=== PATIENT | male | born 1945 | race Caucasian/White ===

== ENCOUNTER → 2017-12-18 | Outpatient (CLI) | payer MEDICARE ==
[~2017-12-18] MED LIST: AMLO10TA82; DOXA4TAB2; DOXA4TAB2 PO; HCT25T; HCTZ12.5T PO; ISM30TCR; ISOS30TA74; LISI2.5T; MTP50T; ROSU10TA12; ROSU10TA12 PO; SULF1TAB38 PO
--- NOTE | 2017-12-18 15:11 | Diagnostic Imaging Report ---
INDICATION: Left hip pain FINDINGS: Two views of the left hip show narrowing of the superior joint space. There is no fracture or dislocation. IMPRESSION: Degenerative changes in the left hip with joint space narrowing superiorly. No acute abnormality is seen. Dictated by: Dictated on workstation # [id number]
== END ==
LOC: RAD 13:55
DX: M16.12 Unilateral primary osteoarthritis, left hip (principal)
CPT/HCPCS: 73502

== ENCOUNTER → 2018-01-29 | Outpatient (CLI) | payer MEDICARE ==
[~2018-01-29] MED LIST changes: +IOHEXOL 350 MG/ML 100 ML (OMNIPAQUE 350) VIAL IV ONE; +NS 250 ML (IVPB) BAG IV ONE
[2018-01-29 14:01] LABS: BUN/CREATININE RATIO 20; CREATININE SERUM 0.85 MG/DL (0.60-1.30); GFR ESTIMATED > 60
--- NOTE | 2018-01-29 15:45 | Diagnostic Imaging Report ---
PROCEDURE: CT pelvis with contrast. TECHNIQUE: Oral and intravenous contrast were administered with pelvic CT performed. INDICATION: Pelvic and perineal pain. COMPARISON: No prior studies are available for comparison. FINDINGS: Distal aorta is heavily calcified but nonaneurysmal. Iliacs are heavily calcified. The small and large bowel loops in the pelvis are normal caliber. No free fluid is identified. Partially filled urinary bladder is unremarkable. Prostate gland is enlarged measuring 4.8 cm AP x 6.0 cm transverse. No definite inguinal or iliac lymphadenopathy is seen. No perirectal or perianal abscess is seen. Ischiorectal fossa is unremarkable. There are degenerative changes in the lower lumbar spine. The bony structures appear nonacute. IMPRESSION: 1. Prostatomegaly. 2. Otherwise unremarkable CT of the pelvis. Dictated by: Dictated on workstation # [id number]
== END ==
LOC: RAD 13:14
PROVIDERS: ATTEND Surgery
DX: N40.0 Benign prostatic hyperplasia without lower urinary tract symptoms (principal)
CPT/HCPCS: 36415; 72193; 82565; 84520

== ENCOUNTER → 2019-07-06 | Outpatient (CLI) | payer MEDICARE ==
[~2019-07-06] MED LIST changes: -IOHEXOL 350 MG/ML 100 ML (OMNIPAQUE 350) VIAL IV ONE; -NS 250 ML (IVPB) BAG IV ONE
--- NOTE | 2019-07-06 10:13 | Diagnostic Imaging Report ---
INDICATION: Fall with left hip pain. Time of exam: 10:05 AM Two views of the left hip demonstrate osteoarthritic changes. There is complete loss of the superior joint space. The femoral head and neck are intact. No fractures are seen. IMPRESSION: Degenerative changes left hip. No acute bony abnormality is detected. Dictated by: Dictated on workstation # [id number]
--- NOTE | 2019-07-06 10:14 | Diagnostic Imaging Report ---
INDICATION: Fall with left medial knee pain. TIME OF EXAM: 10:08 a.m. FINDINGS: Three views of left knee were obtained. Alignment is normal. Joint spaces are well maintained. The articular surfaces are smooth. No fracture, dislocation or effusion is seen. There are surgical clips along the medial and posterior soft tissues. IMPRESSION: No acute bony abnormality is detected. Dictated by: Dictated on workstation # [id number]
== END ==
LOC: RAD 09:38
DX: S83.412A Sprain of medial collateral ligament of left knee, initial encounter (principal); M16.12 Unilateral primary osteoarthritis, left hip; W19.XXXA Unspecified fall, initial encounter
CPT/HCPCS: 73502; 73562

== ENCOUNTER 2021-06-18 12:20 | Day surgery (SDC) | payer MEDICARE ==
[2021-06-18] VITALS (9 sets, daily range): BP systolic 121–149; BP diastolic 69–95
[~2021-06-18] VITALS: Ht 172.7 cm; Wt 98.3 kg
[2021-06-18] MEDS ORDERED: NS IV 1000 ML 1,000 ML IV SCH ×2 (12:30→15:00)
[2021-06-18] MEDS ORDERED: LIDOCAINE 1% INJ 20 ML 20 ML VIAL ONE (12:34)
[2021-06-18] MEDS ORDERED: NS IV 1000 ML 1,000 ML ONE (12:34)
[2021-06-18] MEDS ORDERED: HEParin (CATH LAB) 2,000 ML IV ONE (12:35)
[2021-06-18 12:52] LABS: HEMATOCRIT 44 % (40-54); HEMOGLOBIN 14.2 g/dL (13.3-17.7); MEAN CORPUSCULAR HEMOGLOBIN 29 pg (25-34); MEAN CORPUSCULAR HGB CONC 33 g/dL (32-36); MEAN CORPUSCULAR VOLUME 89 fL (80-99); MEAN PLATELET VOLUME 9.6 fL (9.0-12.2); PLATELET COUNT 180 10^3/uL (130-400); WHITE BLOOD COUNT 5.3 10^3/uL (4.3-11.0)
[2021-06-18 13:12] LABS: ALBUMIN 4.4 GM/DL (3.2-4.5); BILIRUBIN,TOTAL 0.6 MG/DL (0.1-1.0); CALCIUM 9.8 MG/DL (8.5-10.1); CREATININE SERUM 0.87 MG/DL (0.60-1.30); POTASSIUM 4.4 MMOL/L (3.6-5.0); TOTAL PROTEIN 7.7 GM/DL (6.4-8.2)
[2021-06-18] MEDS ORDERED: LISI40TA9 PO (13:21)
[2021-06-18] MEDS ORDERED: METO100T12 PO (13:21)
[2021-06-18] MEDS ORDERED: AMLO-251 PO (13:21)
[2021-06-18] MEDS ORDERED: ASPI-1238 PO (13:21)
[2021-06-18] MEDS ORDERED: METF-399 PO (13:21)
[2021-06-18] MEDS ORDERED: MIDAZOLAM 5 MG/5 ML (VERSED) VIAL ONE (13:24)
[2021-06-18] MEDS ORDERED: fentaNYL INJ 100 MCG/2 ML AMP ONE (13:24)
[2021-06-18 13:29] LABS: PROTHROMBIN TIME PATIENT 13.6 SEC (12.2-14.7)
--- NOTE | 2021-06-18 14:49 | Cardiac Procedure Note-CS/ASA ---
Pre-Procedure Note Pre-Op Procedure Note H&P Reviewed The H&P was reviewed, patient examined and no changes noted. Date H&P Reviewed: Jun 18, 2021 Time H&P Reviewed: 13:45 Conscious Sedation Pre-Proced Time 13:45 ASA Score 3 For ASA 3 and 4: Consider anesthesia and medical clearance. Also, for patients with a history of failed moderate sedation consider anesthesia. Airway Lungs Heart ASA score ASA 1: a normal healthy patient ASA 2: a patient with a mild systemic disease (mid diabetes, controlled hypertension, obesity ASA 3: a patient with a severe systemic disease that limits activity (angina, COPD, prior Myocardial infarction) ASA 4: a patient with an incapacitating disease that is a constant threat to life (CHF, renal failure) ASA 5: a moribund patient not expected to survive 24 hrs. (ruptured aneurysm) ASA 6: a declared brain- patient whose organs are being harvested. For emergent operations, add the letter E after the classification Mallampati Classification Grade 3 Sedation Plan Analgesia, Amnesia, Plan communicated to team members, Discussed options with patient/fam, Discussed risks with patient/fam The patient is an appropriate candidate to undergo the planned procedure, sedation, and anesthesia. The patient immediately re-assessed prior to indication. BERNICE GROVER MD FACP FAC CCDS Jun 18, 2021 14:49
[2021-06-18] MEDS ORDERED: PATIENT MAY USE OWN MEDS, ALL PO SCH (15:00)
[2021-06-18] MEDS ORDERED: FUROSEMIDE 40 MG/4 ML INJ (LASIX) IVP ONE (15:00)
[2021-06-18] MEDS ORDERED: FURO40TA4 PO (15:06)
[2021-06-18] MEDS ORDERED: ATOR20TA66 PO (15:06)
[2021-06-18] MEDS ORDERED: SPIR25TA5 PO (15:06)
--- NOTE | 2021-06-18 15:06 | Discharge Inst-Cardiology ---
Discharge Inst-Cardiac Discharge Medications New Medications: Atorvastatin Calcium (Atorvastatin Calcium) 20 Mg Tablet 20 MG PO DAILY, #30 TAB 5 Refills Furosemide (Furosemide) 40 Mg Tablet 40 MG PO DAILY for 30 Days, #30 TAB 5 Refills Spironolactone (Spironolactone) 25 Mg Tablet 25 MG PO DAILY, #30 TAB 5 Refills Continued Medications: Amlodipine Besylate (Amlodipine Besylate) 10 Mg Tablet 10 MG PO DAILY, TAB Aspirin (Aspirin EC) 81 Mg Tablet.dr 81 MG PO DAILY, TAB Doxazosin Mesylate (Doxazosin Mesylate) 4 Mg Tablet 8 MG PO BID Lisinopril (Lisinopril) 40 Mg Tablet 40 MG PO DAILY, TAB Metoprolol Tartrate (Metoprolol Tartrate) 100 Mg Tablet 100 MG PO BID, TAB Discontinued Medications: Metformin HCl (Metformin HCl) 1,000 Mg Tablet 1000 MG PO BID, TAB Patient Instructions Patient Instructions: Resume METFORMIN at previous home dose beginning on the evening of 06/20/21 BERNICE GROVER MD [facility] Jun 18, 2021 15:06
--- NOTE | 2021-06-18 15:07 | Discharge Inst-Post CATH ---
Discharge Inst-CATH/EP Post Cardiac Cath/EP D/C Inst Follow Up/Plan F/u at Dr Russell's in one week ACTIVITY * Go Home directly and rest. * Limit activity of the leg (or wrist if it was used) for 7 days including aerobics, swimming, jogging, bicycling, etc. * Restrict stair-climbing for 7 days if possible, if not, climb up with your non-cath leg, then bring together on the same step. * Avoid lifting, pushing, pulling or excessive movement of the affected e xtremity for 7 days. * Customary sexual activity may be resumed after 2 days-use caution not to use a position that strains or causes pain to the affected extremity. * No driving for 24 hours. * NO SMOKING. * Avoid straining for bowel movements for 7 days. * Gentle walking on level ground is allowed. * Returning to work will depend on the type of procedure and the results. Your doctor will discuss this with you. CALL YOUR DOCTOR FOR ANY OF THE FOLLOWING: *If bleeding from the puncture site occurs- Apply gentle pressure to site with clean cloth and call your doctor or EMS. * If a knot or lump forms under the skin, increases in size, or causes pain. * If bruising appears to be worsening or moving further down your leg instead of disappearing. * Temperature above 101 F. CARE OF YOUR GROIN INCISION; * Bruising or purple discoloration of the skin near the puncture site is common. * You may shower only, no bathtub bathing for 5 days. Be careful to avoid slipping as your leg may feel stiff. * If a closure device was used on your femoral artery, please see the attached guide regarding care of the device and your leg. * Leave dressing on FOR 24 hours. CARE OF YOUR WRIST INCISION; * Bruising or purple discoloration of the skin near the puncture site is common. * You may shower. * DO NOT submerge wrist. * Leave dressing on FOR 24 hours. BERNICE RUSSELL MD FACP FAC CCDS Jun 18, 2021 15:07
--- NOTE | 2021-06-18 17:33 | CARDIAC CATHETERIZATION ---
DATE OF SERVICE: 06/18/2021 CARDIAC CATHETERIZATION REPORT The patient is a 76-year-old man with a history of coronary artery disease and coronary artery bypass surgery in 2009. He has been having increasing shortness of breath and has also had upper left and shoulder discomfort intermittently. He has had a considerable amount of leg swelling. Symptoms have been progressive for the last 6 months. Cardiac catheterization was carried out today after having obtained an informed consent. DESCRIPTION OF PROCEDURE: He was brought to the cardiac catheterization laboratory in a fasting state. Right groin was prepared and draped in the usual sterile fashion. Lidocaine 1% was used for local anesthesia. Modified Seldinger technique was used to advance a 5-Estonian sheath into the right femoral artery. A 5-Estonian JL4 catheter for left coronary angiography, 5-Estonian JR4 catheter for right coronary angiography, 5-Estonian JR4 catheter was also used for angiography of the aortocoronary grafts. A 5-Estonian YUNG catheter was used for angiography of the left internal mammary artery graft to the left anterior descending. A 5-Estonian pigtail catheter was used for left heart catheterization and left ventricular angiography. Angiography of the right femoral artery was carried out through the sheath and Mynx was used to achieve hemostasis following sheath removal. He tolerated the procedure well. HEMODYNAMICS: Left ventricular end-diastolic pressure following coronary angiography was 22 mmHg. There was no significant pressure gradient on pullback across the aortic valve. Ascending aortic pressure was 126/56 with a mean of 76 mmHg. LEFT VENTRICULAR ANGIOGRAPHY: Left ventricular angiography was carried out in the right anterior oblique projection. There is global hypokinesis and this is significantly more marked in the basal inferior wall. Left ventricular ejection fraction is 35 to 40%. There appears to be mild to moderate mitral regurgitation. CORONARY ANGIOGRAPHY: Left main coronary artery does not exhibit significant disease. Left anterior descending artery has moderate proximal disease and appears to be occluded in its mid portion. Large ramus intermedius artery has moderate diffuse disease. The left circumflex artery is occluded distally. This is a long segment of occlusion. The very distal left circumflex artery is reconstituted by bridging collaterals. The ramus intermedius also supplies collaterals to the very distal left circumflex. The right coronary artery is occluded in its mid portion. This appears to be a small caliber branch. AORTOCORONARY GRAFT: The aortocoronary graft to a diagonal is occluded. The aortocoronary graft to a ramus intermedius is patent, but is small and atretic, probably because of the ramus intermedius itself has only mild to moderate disease. A saphenous vein graft to the posterior descending is occluded. The posterior descending appears to be originating from the left circumflex and fills via bridging collaterals. LEFT INTERNAL MAMMARY ARTERY GRAFT ANGIOGRAPHY: Left internal mammary artery graft to mid left anterior descending artery is patent and with a good distal runoff. CONCLUSIONS: 1. Severe [place] coronary artery disease including mid vessel occlusion of the left anterior descending, distal occlusion of the left circumflex, and mid vessel occlusion of the right coronary. 2. Occluded saphenous vein graft to a diagonal. 3. Occluded saphenous vein graft to the posterior descending artery. 4. Patent but collapsed and atretic graft to ramus intermedius, probably because ramus intermedius itself does not exhibit severe obstructive disease. 5. Patent left internal mammary artery graft to the left anterior descending. 6. Impairment of global left ventricular systolic function with an ejection fraction of 35% to 40%. 7. Global hypokinesis of left ventricle, more marked in the basal inferior wall. 8. Cardiomegaly. 9. Elevated left ventricular end-diastolic pressure. DISCUSSION AND RECOMMENDATIONS: This appears to be a picture of ischemic cardiomyopathy. He is already on beta-blockers and BENY inhibitors. We will add diuretics to the regimen. Close outpatient followup is advised. He wanted a consultation with his cardiovascular surgeon, Dr. Zaragoza, which is being arranged. Job ID: [id number] DocumentID: [id number] Dictated Date: 06/18/2021 15:02:51 Med Spa Manager Date: 06/18/2021 17:33:11 Dictated By: BERNICE GROVER MD, MA, FACP, FACC,
== END 2021-06-18 18:10 | disposition home or self-care (01) ==
LOC: CATH 12:20
PROVIDERS: ATTEND Internal Medicine Cardiovascular Disease
DX: T82.868A Thrombosis due to vascular prosthetic devices, implants and grafts, initial encounter (principal); I25.119 Atherosclerotic heart disease of native coronary artery with unspecified angina pectoris; I11.9 Hypertensive heart disease without heart failure; I49.3 Ventricular premature depolarization; I44.7 Left bundle-branch block, unspecified; E11.9 Type 2 diabetes mellitus without complications; E78.2 Mixed hyperlipidemia; Z79.899 Other long term (current) drug therapy; Z79.82 Long term (current) use of aspirin; Z79.84 Long term (current) use of oral hypoglycemic drugs; Z95.1 Presence of aortocoronary bypass graft
CPT/HCPCS: 80053; 80061; 85027; 85610; 85730; 87081; 93459; C1760; C1769; C1894; 36415

== ENCOUNTER → 2021-11-22 | Outpatient (CLI) | payer MEDICARE ==
[~2021-11-22] MED LIST changes: +AMLO-251 PO; +ASPI-1238 PO; +ATOR20TA66 PO; +FURO40TA4 PO; +LISI40TA9 PO; +METF-399 PO; +METO100T12 PO; +SPIR25TA5 PO
== END ==
LOC: CARD 11:00
PROVIDERS: ATTEND Internal Medicine Cardiovascular Disease
DX: I08.0 Rheumatic disorders of both mitral and aortic valves (principal); I25.5 Ischemic cardiomyopathy
CPT/HCPCS: 93306

== ENCOUNTER 2022-02-06 07:53 | Emergency (ER) | payer MEDICARE ==
[~2022-02-06] VITALS: Ht 172 cm; Wt 95.2 kg
--- NOTE | 2022-02-06 08:13 | ED GU-Male ---
General Chief Complaint: - Reproductive Stated Complaint: URINATING BLOOD Nursing Triage Note: PT AMBULATORY TO ER, C/O HEMATURIA ONSET 12-14 HOURS AGO. PT DENIES PAIN. NO PREVIOUS HX OF HEMATURIA, TAKES A DAILY BABY ASA. Source: patient Exam Limitations: no limitations History of Present Illness Date Seen by Provider: Feb 06, 2022 Time Seen by Provider: 08:00 Initial Comments Patient is a 76-year-old male who presents to the emergency department today with a chief complaint of hematuria onset around 8 PM last night. No dysuria, urgency or frequency. He states that he has a history of prostate enlargement. He feels on a fairly regular basis that he has a difficult time emptying his bladder. Last bowel movement was normal, nonblack nonbloody, no diarrhea. No pain with his bowel movement. He denies fevers or chills. No abdominal pain, nausea or vomiting. He has a long history of heart disease/congestive heart failure. History of coronary artery bypass grafting. Followed by provider relations rep at [facility] in [place]. He is not on blood thinners. No history that he is aware of his kidney disease. No kidney stones or cancers. All other review of systems reviewed and negative except as stated Timing/Duration: other (Last night) Activities at Onset: none Prior Genitourinary Problems: none Associated Symptoms: denies symptoms Allergies and Home Medications Allergies Coded Allergies: No Known Drug Allergies (Verified , 09/18/09) Patient Home Medication List Home Medication List Reviewed: Yes Amlodipine Besylate (Amlodipine Besylate) 10 Mg Tablet, 10 MG PO DAILY, (Reported) Entered as Reported by: LYNNETTE BARRERA on 06/18/21 1321 Aspirin (Aspirin EC) 81 Mg Tablet.dr, 81 MG PO DAILY, (Reported) Entered as Reported by: LYNNETTE BARRERA on 06/18/21 1321 Atorvastatin Calcium (Atorvastatin Calcium) 20 Mg Tablet, 20 MG PO DAILY Prescribed by: BERNICE GROVER on 06/18/21 1506 Doxazosin Mesylate (Doxazosin Mesylate) 4 Mg Tablet, 8 MG PO BID, (Reported) Entered as Reported by: ANILA DOVE on 08/13/12 1521 Furosemide (Furosemide) 40 Mg Tablet, 40 MG PO DAILY Prescribed by: BERNICE GROVER on 06/18/21 1506 Lisinopril (Lisinopril) 40 Mg Tablet, 40 MG PO DAILY, (Reported) Entered as Reported by: LYNNETTE BARRERA on 06/18/21 1321 Metoprolol Tartrate (Metoprolol Tartrate) 100 Mg Tablet, 100 MG PO BID, (Reported) Entered as Reported by: LYNNETTE BARRERA on 06/18/21 1321 Spironolactone (Spironolactone) 25 Mg Tablet, 25 MG PO DAILY Prescribed by: BERNICE GROVER on 06/18/21 3586 Review of Systems Review of Systems Constitutional: see HPI EENTM: no symptoms reported Respiratory: no symptoms reported Cardiovascular: chest pain (Chronic off-and-on especially with any exertion over 100 feet) Gastrointestinal: no symptoms reported Genitourinary: hematuria Musculoskeletal: no symptoms reported Skin: no symptoms reported Psychiatric/Neurological: No Symptoms Reported All Other Systemes Reviewed Negative Unless Noted: Yes Past Jeengxv-Kxotwq-Wggrvl Hx Patient Social History Tobacco Use?: No Use of E-Cig and/or Vaping dev: No Substance use?: No Alcohol Use?: Yes Alcohol Frequency: Couple times a week Pt feels they are or have been: No Immunizations Up To Date First/Initial COVID19 Vaccinat: RECEIVED, UNK WHEN Second COVID19 Vaccination Oj: RECEIVED, UNK WHEN COVID19 Vaccine 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 oz. kg; 32.00 BMI Method:Stated General Appearance: WD/WN, no apparent distress HEENT: PERRL/EOMI Neck: normal inspection Cardiovascular: regular rate, rhythm Respiratory: lungs clear, normal breath sounds, no respiratory distress, no accessory muscle use Gastrointestinal: non tender, soft Extremities: normal range of motion, non-tender, normal inspection, no pedal edema, normal capillary refill Neurologic/Psychiatric: no motor/sensory deficits, alert, normal mood/affect, oriented x 3 Skin: normal color, warm/dry; No pallor Progress/Results/Core Measures Suspected Sepsis SIRS Temperature: Pulse: 89 Respiratory Rate: 18 Laboratory Tests 02/06/22 08:26: White Blood Count 7.3 Blood Pressure 192 /92 Mean: 125 Laboratory Tests 02/06/22 08:26: Creatinine 1.36H, Platelet Count 224 Results/Orders Lab Results Laboratory Tests Test 02/06/22 08:26 02/06/22 10:11 Range/Units White Blood Count 7.3 4.3-11.0 10^3/uL Red Blood Count 4.44 4.30-5.52 10^6/uL Hemoglobin 13.6 13.3-17.7 g/dL Hematocrit 40 40-54 % Mean Corpuscular Volume 91 80-99 fL Mean Corpuscular Hemoglobin 31 25-34 pg Mean Corpuscular Hemoglobin Concent 34 32-36 g/dL Red Cell Distribution Width 12.6 10.0-14.5 % Platelet Count 224 130-400 10^3/uL Mean Platelet Volume 9.7 9.0-12.2 fL Immature Granulocyte % (Auto) 0 % Neutrophils (%) (Auto) 59 42-75 % Lymphocytes (%) (Auto) 31 12-44 % Monocytes (%) (Auto) 8 0-12 % Eosinophils (%) (Auto) 2 0-10 % Basophils (%) (Auto) 0 0-10 % Neutrophils # (Auto) 4.3 1.8-7.8 10^3/uL Lymphocytes # (Auto) 2.3 1.0-4.0 10^3/uL Monocytes # (Auto) 0.6 0.0-1.0 10^3/uL Eosinophils # (Auto) 0.1 0.0-0.3 10^3/uL Basophils # (Auto) 0.0 0.0-0.1 10^3/uL Immature Granulocyte # (Auto) 0.0 0.0-0.1 10^3/uL Sodium Level 134 L 135-145 MMOL/L Potassium Level 4.9 3.6-5.0 MMOL/L Chloride Level 101 98-107 MMOL/L Carbon Dioxide Level 21 21-32 MMOL/L Anion Gap 12 5-14 MMOL/L Blood Urea Nitrogen 29 H 7-18 MG/DL Creatinine 1.36 H 0.60-1.30 MG/DL Estimat Glomerular Filtration Rate 54 BUN/Creatinine Ratio 21 Glucose Level 157 H 70-105 MG/DL Calcium Level 9.8 8.5-10.1 MG/DL Urine Color YELLOW Urine Clarity CLEAR Urine pH 5.5 5-9 Urine Specific [place]vel <=1.005 1.016-1.022 Urine Protein TRACE H NEGATIVE Urine Glucose (UA) NEGATIVE NEGATIVE Urine Ketones NEGATIVE NEGATIVE Urine Nitrite NEGATIVE NEGATIVE Urine Bilirubin NEGATIVE NEGATIVE Urine Urobilinogen 0.2 < = 1.0 MG/DL Urine Leukocyte Esterase NEGATIVE NEGATIVE Urine RBC (Auto) 3+ H NEGATIVE Urine RBC TNTC H /HPF Urine WBC RARE /HPF Urine Crystals PRESENT H /LPF Urine Amorphous Sediment MOD HARLEY URATES H /LPF Urine Bacteria NEGATIVE /HPF Urine Casts NONE /LPF Urine Mucus NEGATIVE /LPF Urine Culture Indicated NO My Orders Orders - MARY AKINS MD Ua Culture If Indicated (02/06/22 08:01) Ed Iv/Invasive Line Start (02/06/22 08:10) Cbc With Automated Diff (02/06/22 08:10) Basic Metabolic Panel (02/06/22 08:10) Bladder Scan (02/06/22 08:10) Ns Iv 1000 Ml (Sodium Chloride 0.9%) (02/06/22 09:15) Ct Abdomen/Pelvis Wo (02/06/22 10:55) Vital Signs/I&O 02/06/22 02/06/22 02/06/22 08:00 08:32 10:00 Temp 36.2 Pulse 89 73 72 Resp 18 18 18 B/P (MAP) 192/92 (125) 126/77 131/72 Pulse Ox 97 94 95 O2 Delivery Room Air Room Air Capillary Refill : Blood Pressure Mean: 125 Progress Note : Time: 11:37 Progress Note Patient has been resting comfortably in the emergency department with stable vital signs, blood pressure has come down nicely 122 systolic at this time. His CT shows a filling defect in the bladder which may represent mass versus clot. He is urinated just fine while he has been here in the department. Urine shows no signs of infection. His renal function is normal. He has what appears to be a solitary cyst in the right kidney on CT as well. I have talked to him about follow-up. I plan to give him contact information for as the patient needs cystoscopy. Return precautions provided to include inability to urinate and fever. He verbalizes understanding and is quite comfortable with plan of care. All questions are sought and answered. Diagnostic Imaging Diagonstic Imaging: CT Comments NAME: CONSTANTIN CHAN II [facility] REC#: [id number] PT STATUS: REG ER : 1945 PHYSICIAN: MARY AKINS MD ADMIT DATE: 02/06/22/ER Draft Date of Exam:02/06/22 CT ABDOMEN/PELVIS WO INDICATION: Hematuria and weakness. TECHNIQUE: Multiple contiguous axial images were obtained through the abdomen and pelvis without the use of intravenous contrast. Auto Exposure Controls were utilized during the CT exam to meet ALARA standards for radiation dose reduction. COMPARISON: There is no prior abdominal CT for comparison. Comparison made with CT pelvis of 01/29/2018. FINDINGS: The visualized portions of the lung bases are clear. There were no pleural fluid collections. There is no free intraperitoneal air. The liver and gallbladder appear normal. The spleen, pancreas, and left kidney appear normal. There is a small cyst in the right kidney. There is no retroperitoneal mass or adenopathy. There is no ascites or abnormal fluid collection. There is a small right adrenal nodule measuring about 1.7 cm, this shows low Hounsfield units and is likely a benign adenoma. Urinary bladder is distended. There is a filling defect in the left side of the bladder measuring about 1.2 cm. This may represent mass or blood clot given the patient's history. Prostate gland is mildly enlarged. IMPRESSION: There is a 1.2 cm hypodense filling defect in the left side of the bladder which may represent mass or blood clot given the patient's history. Cystoscopy is recommended to further evaluate. This finding was not present on the prior CT. There is some degree of prostatic enlargement. There is a small cyst in the right kidney. There is no hydronephrosis or radiopaque stone. There is a small probable adrenal adenoma on the right side. Dictated on workstation # [id number] Dict: 02/06/22 1114 Trans: 02/06/22 1126 [id number] Interpreted by: FITZ BRIAN MD Electronically signed by: Departure Impression Primary Impression: Hematuria, gross Disposition: 01 HOME, SELF-CARE Condition: Stable Departure-Patient Inst. Decision time for Depature: 11:38 Referrals: [facility]/JYOTI (PCP) Primary Care Physician WHITNEY JOE (Family) Primary Care Physician FREDY KIMBLE MD Patient Instructions: Blood in Urine (Hematuria), Adult ED Add. Discharge Instructions: Drink lots of fluids to stay well-hydrated. If you have the inability to urinate over several hours please come back to the emergency room for reevaluation. Also if you develop any fevers in association with discomfort with urination or nausea or any other emergent concerning symptoms develop please come back for reevaluation. I have provided you with contact information for 's office, our urologist. Please call his office today to schedule a follow-up appointment regarding the CAT scan of your abdomen which shows a "filling defect" in your bladder which may represent a mass in the bladder. Follow-up with [facility] as needed. Copy Copies To 1: FREDY KIMBLE MD Copies To 2: RUDOLPH PENG KATHRYN M MD Feb 06, 2022 08:13
[2022-02-06 08:29] LABS: BASOPHILS % (AUTO) 0 % (0-10); EOSINOPHILS # (AUTO) 0.1 10^3/uL (0.0-0.3); EOSINOPHILS % (AUTO) 2 % (0-10); HEMATOCRIT 40 % (40-54); HEMOGLOBIN 13.6 g/dL (13.3-17.7); LYMPHOCYTES # (AUTO) 2.3 10^3/uL (1.0-4.0); LYMPHOCYTES % (AUTO) 31 % (12-44); MEAN CORPUSCULAR HEMOGLOBIN 31 pg (25-34); MEAN CORPUSCULAR HGB CONC 34 g/dL (32-36); MEAN CORPUSCULAR VOLUME 91 fL (80-99); MEAN PLATELET VOLUME 9.7 fL (9.0-12.2); MONOCYTES # (AUTO) 0.6 10^3/uL (0.0-1.0); MONOCYTES % (AUTO) 8 % (0-12); NEUTROPHILS # (AUTO) 4.3 10^3/uL (1.8-7.8); NEUTROPHILS % (AUTO) 59 % (42-75); PLATELET COUNT 224 10^3/uL (130-400); WHITE BLOOD COUNT 7.3 10^3/uL (4.3-11.0)
[2022-02-06 08:48] LABS: CALCIUM 9.8 MG/DL (8.5-10.1); CREATININE SERUM 1.36 MG/DL (0.60-1.30); POTASSIUM 4.9 MMOL/L (3.6-5.0)
[2022-02-06] MEDS ORDERED: NS IV 1000 ML 1,000 ML IV SCH (09:15)
[2022-02-06 10:22] LABS: BILIRUBIN,URINE NEGATIVE (NEGATIVE); CLARITY,URINE CLEAR; COLOR,URINE YELLOW; GLUCOSE, URINE (UA) NEGATIVE (NEGATIVE); KETONES,URINE NEGATIVE (NEGATIVE); LEUKOCYTE ESTERASE ,URINE NEGATIVE (NEGATIVE); NITRITE,URINE NEGATIVE (NEGATIVE); PH,URINE 5.5 (5-9); PROTEIN,URINE TRACE (NEGATIVE)
[2022-02-06 10:31] LABS: AMORPHOUS SEDIMENT,UR MOD AMOR URATES /LPF; BACTERIA,URINE NEGATIVE /HPF; RBC,URINE TNTC /HPF; WBC,URINE RARE /HPF
--- NOTE | 2022-02-06 11:27 | Diagnostic Imaging Report ---
INDICATION: Hematuria and weakness. TECHNIQUE: Multiple contiguous axial images were obtained through the abdomen and pelvis without the use of intravenous contrast. Auto Exposure Controls were utilized during the CT exam to meet ALARA standards for radiation dose reduction. COMPARISON: There is no prior abdominal CT for comparison. Comparison made with CT pelvis of 01/29/2018. FINDINGS: The visualized portions of the lung bases are clear. There were no pleural fluid collections. There is no free intraperitoneal air. The liver and gallbladder appear normal. The spleen, pancreas, and left kidney appear normal. There is a small cyst in the right kidney. There is no retroperitoneal mass or adenopathy. There is no ascites or abnormal fluid collection. There is a small right adrenal nodule measuring about 1.7 cm, this shows low Hounsfield units and is likely a benign adenoma. Urinary bladder is distended. There is a filling defect in the left side of the bladder measuring about 1.2 cm. This may represent mass or blood clot given the patient's history. Prostate gland is mildly enlarged. IMPRESSION: There is a 1.2 cm hypodense filling defect in the left side of the bladder which may represent mass or blood clot given the patient's history. Cystoscopy is recommended to further evaluate. This finding was not present on the prior CT. There is some degree of prostatic enlargement. There is a small cyst in the right kidney. There is no hydronephrosis or radiopaque stone. There is a small probable adrenal adenoma on the right side. Dictated by: Dictated on workstation # [id number]
[2022-02-06 11:45] VITALS: BP 122/62
== END 2022-02-06 11:45 | disposition home or self-care (01) ==
LOC: EDUNIT# 07:53 → ER 07:54
DX: R31.0 Gross hematuria (principal); Z87.438 Personal history of other diseases of male genital organs
CPT/HCPCS: 36415; 74176; 80048; 81000; 85025

== ENCOUNTER 2022-02-24 05:29 | Outpatient (CLI) | payer MEDICARE ==
[~2022-02-24] VITALS: Ht 175.3 cm; Wt 94.8 kg
== END 2022-02-24 09:41 ==
LOC: PREOP 05:29
PROVIDERS: ATTEND Urology
DX: Z01.818 Encounter for other preprocedural examination (principal); D49.4 Neoplasm of unspecified behavior of bladder

== ENCOUNTER 2022-02-26 05:59 | Day surgery (SDC) | payer MEDICARE ==
[~2022-02-26] VITALS: Ht 175.3 cm; Wt 94.8 kg
[2022-02-26] VITALS (12 sets, daily range): BP systolic 83–149; BP diastolic 46–83
[2022-02-26] MEDS ORDERED: cefTRIAXone 1 GM PRE-MIX 50 ML IV ONE (06:15)
[2022-02-26] MEDS: LACTATED RINGERS 1,000 ML IV PRN ×2 (06:35→08:47)
[2022-02-26] MEDS ORDERED: LIDOCAINE PF 0.5% 50 ML (XYLOCAINE) VIAL ONE (07:14)
[2022-02-26] MEDS ORDERED: proPOfol 200 MG/20 ML (DIPRIVAN) VIAL IV ONE (07:14)
[2022-02-26] MEDS ORDERED: fentaNYL INJ 100 MCG/2 ML AMP ONE (07:15)
[2022-02-26] MEDS ORDERED: MIDAZOLAM 2 MG/2 ML (VERSED) VIAL ONE (07:15)
--- NOTE | 2022-02-26 08:14 | Progress Note-Pre Operative ---
Pre-Operative Progress Note Date of Available H&P: Feb 26, 2022 Date H&P Reviewed: Feb 26, 2022 Time H&P Reviewed: 08:14 Changes from last HP NONE Pre-Operative Diagnosis: BLADDER TUMOR ( MEDIUM) FREDY KIMBLE MD Feb 26, 2022 08:14
--- NOTE | 2022-02-26 08:15 | Progress Note-Post Operative ---
Post-Operative Progess Note Surgeon (s)/Orchid Transplanter (s) Surgeon FREDY KIMBLE MD Orchid Transplanter: NONE Pre-Operative Diagnosis BLADDER TUMOR ( MEDIUM) Post-Operative Diagnosis SAME Procedure & Operative Findings Date of Procedure 02/26/22 Procedure Performed/Findings TURBT Anesthesia Type GENERAL Estimated Blood Loss Estimated blood loss (mL): NEGLIGIBLE Specimens/Packing Specimens Removed BLADDER TUMOR CHIPS AND BASE Packing: NONE FREDY KIMBLE MD Feb 26, 2022 08:15
--- NOTE | 2022-02-26 08:17 | Discharge Inst-Urology ---
Discharge Inst-Urology Reconcile Patient Problems Problems Reviewed?: Yes Final Diagnosis BLADDER TUMOR Patient Instructions/Follow Up Plan/Assessment/Instructions Please make appointment to been seen in office in 2 weeks. Rest till then and off ASA Keep bowels soft and moving Increase oral fluids for 48 hours and then as needed. Diet as tolerated. If questions or concerns contact your physician Or seek help at emergency department. FREDY KIMBLE MD Feb 26, 2022 08:17
[2022-02-26] MEDS ORDERED: LIDOCAINE PF 1% 5 ML (XYLOCAINE) AMP ONE (08:25)
[2022-02-26] MEDS ORDERED: ROCURONIUM 50 MG/5 ML (ZEMURON) VIAL IV ONE (08:34)
[2022-02-26] MEDS ORDERED: ONDANSETRON 4 MG/2 ML (SDV) Z0FRAN ONE (08:35)
[2022-02-26] MEDS ORDERED: SEVOFLURANE (ULTANE) 15 ML INHAL SOLN ONE (08:41)
--- NOTE | 2022-02-26 08:48 | Anesthesia-General Post-Op ---
General Patient Condition Mental Status/LOC: Same as Preop Cardiovascular: Satisfactory Nausea/Vomiting: Absent Respiratory: Satisfactory Pain: Controlled Complications: Absent Post Op Complications Complications None Follow Up Care/Instructions Patient Instructions None needed. Anesthesia/Patient Condition Patient Condition Patient is doing well, no complaints, stable vital signs, no apparent adverse anesthesia problems. No complications reported per nursing. JANY HEATON CRNA Feb 26, 2022 08:48
[2022-02-26] MEDS ORDERED: SULF1TAB38 PO (08:59)
[2022-02-26] MEDS ORDERED: PHEN-640 PO (08:59)
[2022-02-26] MEDS ORDERED: fentaNYL INJ 100 MCG/2 ML AMP IVP ONE (09:00)
[2022-02-26] MEDS ORDERED: ONDANSETRON 4 MG/2 ML (SDV) Z0FRAN IVP PRN (09:00)
--- NOTE | 2022-02-26 13:26 | OPERATIVE REPORT ---
DATE OF SERVICE: 02/26/2022 PREOPERATIVE DIAGNOSIS: Medium bladder tumor. POSTOPERATIVE DIAGNOSIS: Medium bladder tumor. OPERATION PERFORMED: Transurethral resection of bladder tumor. SURGEON: Fredy Kibmle MD ANESTHESIA: General. COMPLICATIONS: None. DESCRIPTION OF PROCEDURE: Under satisfactory general anesthesia, the patient in lithotomy position, genitalia were prepped and draped in the usual sterile fashion. Urethra was dilated with Monica sound to #30 Syriac to accommodate a 27-Syriac Nixon resectoscope easily. The bladder was inspected. Again, visualized a medium sized bladder tumor on the lateral wall just above and lateral to the ureteral orifice. It was completely resected shining very easily, looking superficial. Then, a couple of bites were taken from the base. Bleeders were cauterized and hemostasis was complete. The ureteric orifices on the left side was intact with clear efflux. No further bladder tumor was visualized. The bladder was evacuated. The resectoscope was removed. The patient tolerated the procedure and anesthesia well and was sent to recovery room in stable condition. CC: [facility] - requested, unable to deliver Job ID: [id number] DocumentID: [id number] Dictated Date: 02/26/2022 08:42:31 Food Service Employee Date: 02/26/2022 13:25:31 Dictated By: FREDY KIMBLE MD
== END 2022-02-26 10:56 ==
LOC: SDC 05:59
PROVIDERS: ATTEND Urology
DX: C67.9 Malignant neoplasm of bladder, unspecified (principal)
CPT/HCPCS: 87081